=== PATIENT | male | born 1980 | race Two or more races ===

== ENCOUNTER 2016-12-06 10:52 | Emergency (ER) | payer MEDICAID ==
[~2016-12-06] VITALS: Ht 175.3 cm; Wt 96.6 kg
[2016-12-06 14:24] VITALS: BP 130/87
[2016-12-06] MEDS ORDERED: cefTRIAXone SOD 1,000 MG VL IM ONE (14:30)
== END 2016-12-06 15:25 | disposition home or self-care (01) ==
LOC: ER 10:52
DX: L03.113 Cellulitis of right upper limb (principal)
CPT/HCPCS: 96372; 99283; J0696